=== PATIENT | female | born 1990 ===

== ENCOUNTER 2025-04-10 19:30 | Emergency (ER) | payer SELFPAY ==
[2025-04-10] MEDS: Sodium Chloride 0.9% 1,000 ML IV ONE (20:17)
[2025-04-10 20:19] LABS: BASOPHILS ABSOLUTE AUTO 0.09 K/uL (0.00-0.20); BASOPHILS PERCENT AUTO 1.4 % (0.0-1.0); EOSINOPHILS ABSOLUTE AUTO 0.25 K/uL (0.00-0.45); EOSINOPHILS PERCENT AUTO 3.8 % (0.0-6.0); HEMATOCRIT 41.2 % (37.0-47.0); HEMOGLOBIN 14.9 g/dL (12.0-16.0); IMMATURE GRAN ABSOLUTE AUTO 0.01 K/uL (0.00-0.05); IMMATURE GRAN PERCENT AUTO 0.2 % (0.0-0.4); LYMPHOCYTES ABSOLUTE AUTO 2.97 K/uL (1.00-4.80); LYMPHOCYTES PERCENT AUTO 45.3 % (24.0-44.0); MEAN CORPUSCULAR HEMOGLOBIN 33.8 pg (28.0-32.0); MEAN CORPUSCULAR HGB CONC 36.2 g/dL (32.0-36.0); MEAN CORPUSCULAR VOLUME 93.4 fL (83.0-99.0); MONOCYTES PERCENT AUTO 4.6 % (0.0-8.0); NEUTROPHILS ABSOLUTE AUTO 2.94 K/uL (1.80-7.70); NEUTROPHILS PERCENT AUTO 44.7 % (41.0-71.0); PLATELET COUNT,PLT 279 K/uL (150-400); RED BLOOD CELL COUNT 4.41 M/uL (4.10-5.30); WHITE BLOOD CELL COUNT,WBC 6.56 K/uL (3.9-11.3)
[2025-04-10 20:47] LABS: ALBUMIN 3.4 g/dL (3.4-5.0); BILIRUBIN TOTAL 1.2 mg/dL (0.2-1.0); CALCIUM 7.9 mg/dL (8.5-10.1); CREATININE 0.8 mg/dL (0.6-1.0); EST CRCL DRUG DOSING (CG) 87.18 mL/min; POTASSIUM,K 3.5 mmol/L (3.5-5.1); PROTEIN TOTAL,TP 6.8 g/dL (6.4-8.2)
== END 2025-04-10 21:23 | disposition home or self-care (01) ==
LOC: MW.ED 19:30
DX: F10.10 Alcohol abuse, uncomplicated (principal); Z75.3 Unavailability and inaccessibility of health-care facilities; Z79.899 Other long term (current) drug therapy; Y90.9 Presence of alcohol in blood, level not specified
CPT/HCPCS: 36415; 80053; 83690; 83735; 85025; 93005; 96360; 99284; J7030; 93010

== ENCOUNTER 2025-04-12 08:32 | Emergency (ER) | payer SELFPAY | END 2025-04-12 09:42 | disposition left against medical advice (07) | LOC: MW.ED 08:32 | DX: Z53.21 Procedure and treatment not carried out due to patient leaving prior to being seen by health care provider (principal) ==

== ENCOUNTER 2025-04-28 19:27 | Emergency (ER) | payer BC ==
[2025-04-28 19:57] LABS: APPEARANCE,URINE CLEAR; BILIRUBIN,URINE NEGATIVE (NEGATIVE); COLOR,URINE YELLOW; GLUCOSE,URINE NEGATIVE (NEGATIVE); KETONES,URINE NEGATIVE (NEGATIVE); LEUKOCYTE ESTERASE,URINE NEGATIVE (NEGATIVE); NITRITE,URINE NEGATIVE (NEGATIVE); OCCULT BLOOD,URINE NEGATIVE (NEGATIVE); PROTEIN,URINE NEGATIVE (NEGATIVE); UROBILINOGEN,URINE 0.2 EU/dL (<2.0)
[2025-04-28] MEDS: chlordiazePOXIDE 25 MG Cap PO ONE ×2 (21:25→21:26)
== END 2025-04-28 21:41 | disposition home or self-care (01) ==
LOC: MW.ED 19:27
DX: O99.311 Alcohol use complicating pregnancy, first trimester (principal); F10.20 Alcohol dependence, uncomplicated; Z79.899 Other long term (current) drug therapy; Z3A.00 Weeks of gestation of pregnancy not specified; Y90.9 Presence of alcohol in blood, level not specified
CPT/HCPCS: 36415; 81003; 81025; 84702; 99284; A9270; 99283

== ENCOUNTER 2025-05-04 12:14 | Emergency (ER) | payer BC | END 2025-05-04 13:52 | disposition home or self-care (01) | LOC: MW.ED 12:14 | DX: O26.891 Other specified pregnancy related conditions, first trimester (principal); N94.6 Dysmenorrhea, unspecified; Z79.899 Other long term (current) drug therapy; Z3A.00 Weeks of gestation of pregnancy not specified | CPT/HCPCS: 36415; 81025; 84702; 99282; 99284 ==

== ENCOUNTER 2025-06-12 19:16 | Emergency (ER) | payer BC ==
[2025-06-12 20:21] LABS: APPEARANCE,URINE CLEAR; GLUCOSE,URINE NEGATIVE (NEGATIVE); OCCULT BLOOD,URINE NEGATIVE (NEGATIVE)
[2025-06-12 20:31] LABS: EPITHELIAL CELLS,URINE MODERATE (NONE-FEW)
[2025-06-12 21:07] LABS: CANDIDA DNA PROBE NEGATIVE (NEGATIVE); GARDNERELLA DNA PROBE POSITIVE (NEGATIVE); TRICHOMONAS DNA PROBE NEGATIVE (NEGATIVE)
[2025-06-12 21:48] LABS: C. TRACHOMATIS BY PCR NOT DETECTED; N. GONORRHOEAE BY PCR NOT DETECTED
== END 2025-06-12 22:34 | disposition home or self-care (01) ==
LOC: MW.ED 19:16
DX: F10.139 Alcohol abuse with withdrawal, unspecified (principal); N76.0 Acute vaginitis; N39.0 Urinary tract infection, site not specified; Z75.3 Unavailability and inaccessibility of health-care facilities; Z79.899 Other long term (current) drug therapy
CPT/HCPCS: 81001; 81025; 87480; 87491; 87510; 87591; 87660; 99284; A9270; 99282